=== PATIENT | male | born 1975 | race Caucasian/White ===

== ENCOUNTER 2017-09-03 06:38 | Emergency (ER) | payer OTHER ==
[~2017-09-03] VITALS: Ht 195.6 cm; Wt 136.1 kg
[~2017-09-03 06:38] MED LIST: ACET325; ALBU90I INH; ALBU90OI INH; AMIT50 PO; AMLO5 PO; Augmentin 875-1 EACH PO; Bactrim 400-801 EACH PO; CEPH500 PO; CYCL10 PO; DIPATR PO; DULO30 PO; ESCI10; GABA300 PO; HYDACE10B PO; HYDACE5 PO; IBUP800 PO; MONT10T PO; NAPR500 PO; NAPR550 PO; OXYACE5T PO; OXYACE7.5T PO; PRED10 PO; PROM25 PO; Percocet 5-3251 EACH PO; RXCYCL10 PO; RXDIPATR PO; RXHYD5325 PO; RXHYDACE PO; RXOXYACE PO; RXPROM25 PO; TOPI100 PO; TOPI50 PO; Ventolin/Prove6.7 GM INH
[2017-09-03] MEDS ORDERED: Bactrim Ds Tab1 EACH PO (09:41)
[2017-09-03] MEDS ORDERED: CEPH500 PO (09:41)
== END 2017-09-03 10:00 | disposition home or self-care (01) ==
LOC: ER 06:38
DX: L02.416 Cutaneous abscess of left lower limb (principal); Z79.899 Other long term (current) drug therapy; J45.909 Unspecified asthma, uncomplicated
CPT/HCPCS: 99283

== ENCOUNTER 2017-10-25 11:22 | Emergency (ER) | payer OTHER ==
[~2017-10-25] VITALS: Ht 195.6 cm; Wt 137.9 kg
[~2017-10-25 11:22] MED LIST changes: +Bactrim Ds Tab1 EACH PO
== END 2017-10-25 12:22 | disposition home or self-care (01) ==
LOC: ER 11:22
DX: R29.898 Other symptoms and signs involving the musculoskeletal system (principal); E66.01 Morbid (severe) obesity due to excess calories; J45.909 Unspecified asthma, uncomplicated; I10 Essential (primary) hypertension; Z79.899 Other long term (current) drug therapy; Z68.36 Body mass index [BMI] 36.0-36.9, adult
CPT/HCPCS: 29125; 99283

== ENCOUNTER 2017-10-29 12:42 | Emergency (ER) | payer OTHER ==
[~2017-10-29] VITALS: Ht 195.6 cm; Wt 137.9 kg
[2017-10-29] MEDS ORDERED: CEPH500 PO (13:24)
[2017-10-29] MEDS ORDERED: Mupirocin22 GM TOP (13:24)
== END 2017-10-29 13:33 | disposition home or self-care (01) ==
LOC: ER 12:42
DX: L98.9 Disorder of the skin and subcutaneous tissue, unspecified (principal); Z79.899 Other long term (current) drug therapy
CPT/HCPCS: 99283

== ENCOUNTER 2018-04-04 20:27 | Emergency (ER) | payer OTHER ==
[~2018-04-04] VITALS: Ht 182.9 cm; Wt 140.6 kg
[~2018-04-04 20:27] MED LIST changes: +Mupirocin22 GM TOP
[2018-04-04 20:56] LABS: BASOPHILS ABSOLUTE AUTO 0.03 K/mm3 (0.00-0.23); BASOPHILS PERCENT AUTO 0 % (0-2); EOSINOPHILS ABSOLUTE AUTO 0.13 K/mm3 (0.00-0.68); EOSINOPHILS PERCENT AUTO 1 % (0-6); Hematocrit 38.9 % (37.0-53.0); IMMATURE GRAN ABSOLUTE AUTO 0.08 K/mm3 (0.00-0.10); IMMATURE GRAN PERCENT AUTO 1 % (0-1); LYMPHOCYTES ABSOLUTE AUTO 3.21 K/mm3 (0.84-5.20); LYMPHOCYTES PERCENT AUTO 22 % (21-46); MONOCYTES ABSOLUTE AUTO 0.65 K/mm3 (0.16-1.47); MONOCYTES PERCENT AUTO 5 % (4-13); Mean Corpuscular HGB 31.6 pg (26.0-34.0); Mean Corpuscular HGB Conc 33.4 g/dL (31.5-36.5); Mean Corpuscular Volume 95 fL (80-100); Mean Platelet Volume 9.9 fL (9.1-12.4); NEUTROPHILS ABSOLUTE AUTO 10.26 K/mm3 (1.96-9.15); NEUTROPHILS PERCENT AUTO 71 % (41-73); Platelet Count 343 K/mm3 (150-400); RDW Coefficient Variation 13.3 % (11.7-14.2); RDW Standard Deviation 46.1 fL (35.1-46.3); Red Blood Cell Count 4.11 M/mm3 (4.30-5.90); White Blood Cell Count 14.36 K/mm3 (4.00-11.30)
[2018-04-04 21:14] LABS: Alanine Aminotransfer (ALT/SGP 19 U/L (12-78); Albumin/Globulin Ratio 0.9 (0.8-1.8); Alk Phos 108 U/L (50-136); Anion Gap 11 mmol/L (6-16); Aspartate Aminotrans (AST/SGOT 13 U/L (12-37); Bilirubin, Total 0.5 mg/dL (0.1-1.0); Blood Urea Nitrogen 16 mg/dL (8-24); Bun/Creatinine Ratio 15.2 (12.0-20.0); CO2, Blood 20 mmol/L (21-32); Calcium, Blood 8.8 mg/dL (8.5-10.1); Chloride, Blood 108 mmol/L (98-108); Creatinine, Blood 1.05 mg/dL (0.60-1.20); Globulin, Blood 4.4 g/dL (2.2-4.0); Glomerular Filtration Rate >60 (60-); Glucose, Blood 178 mg/dL (70-99); Potassium, Blood 3.4 mmol/L (3.5-5.5); Sodium, Blood 139 mmol/L (136-145); Total Protein, Blood 8.4 g/dL (6.4-8.2)
[2018-04-04] MEDS ORDERED: Motion Sickness25 M1 PO (21:46)
[2018-04-04 22:30] LABS: Source, Urine Clean Catch
[2018-04-04 22:32] LABS: Bilirubin, Urine Neg (Neg); Blood, Urine 1+ (Neg); Glucose Qualitative, Urine Neg (Neg); Ketones, Urine Neg (Neg); Nitrite, Urine Neg (Neg); Protein, Urine 3+ (Neg); Urobilinogen, Urine NORM (Normal)
[2018-04-04 22:37] LABS: Leukocyte Esterase, Urine Neg (Neg)
[2018-04-04 22:39] LABS: Appearance, Urine Hazy (Clear); Color, Urine Yellow (P-Yellow)
[2018-04-04 22:41] LABS: Mucus Light ([, 0-Heavy])
[2018-04-04 22:42] LABS: Bacteria Few /hpf; Squamous Epithelial Cells Not Seen /hpf (Few)
[2018-04-04 22:43] LABS: Hyaline Casts 0-2 /lpf (0-2)
[2018-04-04 22:45] LABS: U Amphetamine Screen Not Detected; U Barbituate Screen Not Detected; U Benzodiazapine Screen Not Detected; U Buprenorphine Screen Not Detected; U Cannabinoids Screen DETECTED; U Cocaine Screen Not Detected; U Methadone Screen Not Detected; U Methamphetamine Screen Not Detected; U Opiates Screen Not Detected; U Oxycodone Screen Not Detected; U Phencyclidine Screen Not Detected; U Propoxyphene Screen Not Detected
== END 2018-04-04 23:17 | disposition home or self-care (01) ==
LOC: ER 20:27
PROVIDERS: Emergency Medicine
DX: R42 Dizziness and giddiness (principal); E87.6 Hypokalemia; Z79.899 Other long term (current) drug therapy; I10 Essential (primary) hypertension; J45.909 Unspecified asthma, uncomplicated; F32.9 Major depressive disorder, single episode, unspecified
CPT/HCPCS: 36415; 71045; 80053; 81001; 85025; 87086; 93005; 93010; 96360; 99284-25; J7030

== ENCOUNTER 2018-09-06 12:18 | Emergency (ER) | payer SELFPAY ==
[~2018-09-06] VITALS: Ht 195.6 cm; Wt 140.6 kg
[~2018-09-06 12:18] MED LIST changes: +Motion Sickness25 M1 PO; +Zofran Odt4 MG PO
[2018-09-06 13:32] LABS: Influenza A Negative (NEGATIVE); Influenza B Negative (NEGATIVE)
[2018-09-06] MEDS ORDERED: ALBU90OI INH (14:01)
== END 2018-09-06 14:27 | disposition home or self-care (01) ==
LOC: ER 12:18
PROVIDERS: Physician Assistant
DX: J45.901 Unspecified asthma with (acute) exacerbation (principal); J06.9 Acute upper respiratory infection, unspecified; I10 Essential (primary) hypertension; F32.9 Major depressive disorder, single episode, unspecified; Z79.899 Other long term (current) drug therapy
CPT/HCPCS: 71046; 87804; 99283-25

== ENCOUNTER 2019-04-27 10:42 | Inpatient (IN) | payer OTHER ==
[~2019-04-27] VITALS: Ht 195.6 cm; Wt 165.7 kg
[2019-04-27 11:19] LABS: Source, Urine Voided
[2019-04-27 11:24] LABS: Appearance, Urine Clear (Clear); Bilirubin, Urine Neg (Neg); Blood, Urine Neg (Neg); Color, Urine Yellow (P-Yellow); Glucose Qualitative, Urine 2+ (Neg); Ketones, Urine 1+ (Neg); Leukocyte Esterase, Urine 1+ (Neg); Nitrite, Urine Neg (Neg); Protein, Urine 2+ (Neg); Urobilinogen, Urine 1+ (Normal)
[2019-04-27 11:46] LABS: Bacteria Few /hpf; Red Blood Cells, Urine 0-2 /hpf (0-2); Squamous Epithelial Cells Few /hpf (Few)
[2019-04-27 13:14] LABS: BASOPHILS ABSOLUTE AUTO 0.04 K/mm3 (0.00-0.23); BASOPHILS PERCENT AUTO 0 % (0-2); EOSINOPHILS ABSOLUTE AUTO 0.01 K/mm3 (0.00-0.68); EOSINOPHILS PERCENT AUTO 0 % (0-6); Hematocrit 38.4 % (37.0-53.0); Hemoglobin 13.2 g/dL (13.5-17.5); IMMATURE GRAN ABSOLUTE AUTO 0.19 K/mm3 (0.00-0.10); IMMATURE GRAN PERCENT AUTO 1 % (0-1); LYMPHOCYTES ABSOLUTE AUTO 1.15 K/mm3 (0.84-5.20); LYMPHOCYTES PERCENT AUTO 6 % (21-46); MONOCYTES ABSOLUTE AUTO 1.38 K/mm3 (0.16-1.47); MONOCYTES PERCENT AUTO 7 % (4-13); Mean Corpuscular HGB 32.4 pg (26.0-34.0); Mean Corpuscular HGB Conc 34.4 g/dL (31.5-36.5); Mean Corpuscular Volume 94 fL (80-100); Mean Platelet Volume 10.4 fL (9.1-12.4); NEUTROPHILS ABSOLUTE AUTO 17.34 K/mm3 (1.96-9.15); NEUTROPHILS PERCENT AUTO 86 % (41-73); Platelet Count 294 K/mm3 (150-400); RDW Coefficient Variation 12.7 % (11.7-14.2); RDW Standard Deviation 43.6 fL (35.1-46.3); Red Blood Cell Count 4.08 M/mm3 (4.30-5.90); White Blood Cell Count 20.11 K/mm3 (4.00-11.30)
[2019-04-27 13:24] LABS: Alanine Aminotransfer (ALT/SGP 26 U/L (12-78); Albumin, Blood 3.2 g/dL (3.4-5.0); Albumin/Globulin Ratio 0.8 (0.8-1.8); Alk Phos 100 U/L (50-136); Anion Gap 10 mmol/L (6-16); Aspartate Aminotrans (AST/SGOT 18 U/L (12-37); Bilirubin, Total 1.5 mg/dL (0.1-1.0); Blood Urea Nitrogen 14 mg/dL (8-24); Bun/Creatinine Ratio 14.7 (12.0-20.0); CO2, Blood 24 mmol/L (21-32); CPK Creatine Kinase 399 U/L (39-308); Calcium, Blood 8.7 mg/dL (8.5-10.1); Chloride, Blood 103 mmol/L (98-108); Creatine Kinase MB 1.5 ng/mL (0.0-3.6); Creatine Kinase MB Index 0.4 (0.0-4.0); Creatinine, Blood 0.95 mg/dL (0.60-1.20); Globulin, Blood 4.1 g/dL (2.2-4.0); Glomerular Filtration Rate >60 (60-); Glucose, Blood 239 mg/dL (70-99); Potassium, Blood 4.2 mmol/L (3.5-5.5); Sodium, Blood 137 mmol/L (136-145); Total Protein, Blood 7.3 g/dL (6.4-8.2)
--- NOTE | 2019-04-27 17:15 | NUR ---
INITIAL ASSESSMENT PATIENT ALERT AND ORIENTED X 4. PATIENT HAS TEMP OF 99.3 DEGREES FAHRENHEIT. PATIENT 1 PERSON ASSIST TRANSFER TO [facility] PER ER. PATIENT BROUGHT CANE THAT HE USES. PATIENT HOMELESS. PATIENT COMPLAINS OF PAIN IN BILAT FEET AND LEGS. PATIENT SATTING 90% AND GREATER ON RA. LUNGS CLEAR IN UPPER LOBES AND DIMINISHED IN LOWER LOBES. PATIENT HAS DRY COUGH. PATIENT IN ST, HR IN THE LOW 100S. SBP 140S TO 160S. ABDOMEN TENDER ON LEFT SIDE, HYPOACTIVE BS. PATIENT STATES LAST BM ON THE . PATIENT STATES HE WILL BE ABLE TO USE BEDSIDE URINAL. RECEIVED REPORT THAT WHEN PATIENT FOUND HE WAS FOUND INCONTINENT OF URINE AND STOOL. PATIENT BILAT THIGHS REDDENED, SCABBED, RASHY. BILAT FEET REDDENED, ESPECIALLY R 2ND TOE. THIGHS AND FEET OUTLINED IN SKIN MARKER. SCATTERED SCABS TO BACK AND TO LEFT HEEL. COCCYX REDDENED. SKIN FOLDS VERY MOIST AND SMELL YEASTY. CHA AREA EXCORIATED. NS INFUSING AT 150 MLS/ HOUR. PATIENT RECEIVED FLU SHOT. PATIENT ORIENTED TO UNIT, ROOM AND CALL SYSTEM. BED LOW, CALL LIGHT IN REACH. WILL CONTINUE TO MONITOR PATIENT FREQUENTLY THROUGHOUT SHIFT.
--- NOTE | 2019-04-27 19:20 | NUR ---
ASSUME CARE: REPORT RECIEVED FROM CHARLIE OFFGOING RN. MONITOR INTACT SHOWING SINUS RHYTHM/ SINUS TACH HEART RATE 90'S-100'S. DENIES CHEST PAIN CO LEG FEET DISCOMFORT HOWEVER "BETTER THAN IT WAS" LUNG SOUNDS CLEAR WITH DISTANT DECREASED SOUNDS IN THE BASES.RESPIRATIONS REGULAR AND EASY. SPO2 90-95%. ABDOMEN SOFT WITH BOWEL SOUNDS FOUR QUADS. DENIES NEED TO VOID. LOWER EXTREMITIES THIGHS AND FEET REDENED AND TENDER PUFFY SEE PHOTOS. CONTINUE TO MONITOR AND REPORT CHANGE IN PATIENT CONDITION.
--- NOTE | 2019-04-27 19:27 | NUR ---
SHIFT SUMMARY VITAL SIGNS HAVE REMAINED STABLE. PATIENT GIVEN PRN OXYCODONE TO HELP WITH FEET AND LEG PAIN. PATIENT HAS NO COMPLAINTS AT THIS TIME. NO OTHER ACUTE CHANGES TO NOTE ON SINCE ADMIT. REPORT GIVEN TO ASSUMING THREAD LASTER NURSE.
[2019-04-28 04:02] LABS: BASOPHILS ABSOLUTE AUTO 0.03 K/mm3 (0.00-0.23); BASOPHILS PERCENT AUTO 0 % (0-2); EOSINOPHILS ABSOLUTE AUTO 0.13 K/mm3 (0.00-0.68); EOSINOPHILS PERCENT AUTO 1 % (0-6); Hemoglobin 11.4 g/dL (13.5-17.5); IMMATURE GRAN ABSOLUTE AUTO 0.08 K/mm3 (0.00-0.10); IMMATURE GRAN PERCENT AUTO 1 % (0-1); LYMPHOCYTES ABSOLUTE AUTO 1.97 K/mm3 (0.84-5.20); LYMPHOCYTES PERCENT AUTO 18 % (21-46); MONOCYTES ABSOLUTE AUTO 0.81 K/mm3 (0.16-1.47); MONOCYTES PERCENT AUTO 7 % (4-13); Mean Corpuscular HGB 32.3 pg (26.0-34.0); Mean Corpuscular HGB Conc 33.5 g/dL (31.5-36.5); Mean Corpuscular Volume 96 fL (80-100); Mean Platelet Volume 10.4 fL (9.1-12.4); NEUTROPHILS ABSOLUTE AUTO 8.09 K/mm3 (1.96-9.15); NEUTROPHILS PERCENT AUTO 73 % (41-73); Platelet Count 255 K/mm3 (150-400); RDW Coefficient Variation 12.8 % (11.7-14.2); RDW Standard Deviation 45.4 fL (35.1-46.3); Red Blood Cell Count 3.53 M/mm3 (4.30-5.90); White Blood Cell Count 11.11 K/mm3 (4.00-11.30)
[2019-04-28 04:29] LABS: Anion Gap 8 mmol/L (6-16); Blood Urea Nitrogen 10 mg/dL (8-24); Bun/Creatinine Ratio 11.8 (12.0-20.0); CO2, Blood 24 mmol/L (21-32); Chloride, Blood 107 mmol/L (98-108); Creatinine, Blood 0.85 mg/dL (0.60-1.20); Glomerular Filtration Rate >60 (60-); Glucose, Blood 128 mg/dL (70-99); Potassium, Blood 3.1 mmol/L (3.5-5.5); Sodium, Blood 139 mmol/L (136-145)
--- NOTE | 2019-04-28 05:22 | NUR ---
SHIFT SUMMARY: RESTS QUIETLY WHEN UNDISTURBED COOPERATIVE TO CARES. MONITOR INTACT SHOWING SINUS TACH HEART RATE 100;S DENIES CHEST PAIN CONTINUES TO CO PAIN LEGS AND FEET. BOTH REMAIN RED. NO REDNESS NOTED OUTSIDE OF LAI. LUNG SOUNDS CLEAR UPPER LOBES DISTANT AND DECREASED IN THE BASES. VOIDS DARK YISEL URINE PER URINAL CONTINUE TO MONITOR AND REPORT CHANGE IN PATIENT CONDITION
--- NOTE | 2019-04-28 07:30 | NUR ---
ASSUMED CARE: PT RESTING IN BED AT THIS TIME. SINUS TACH AT THIS TIME. NO ACUTE NEEDS
--- NOTE | 2019-04-28 09:37 | NUR ---
CALL TO PATRICIA IN INFECTION CONTROL. DISCUSSED PT'S HISTORY OF BED BUGS. PATRICIA STATED THAT SINCE IT IS A HISTORY, TO HAVE MD EXAMINE PT TO DETERMINE IF ANY RECENT BITES ARE PRESENT. DISCUSSED WITH DR PEPPER WHO CAME IN TO SEE PT AND STATED ISOLATION CAN BE REMOVED BECAUSE NO BITES ARE PRESENT. DR PEPPER ALSO AWARE OF PT'S TACYCARDIA, PLAN TO INCREASE AMPLODIPINE DOSE. NO FURTHER NEEDS AT THIS TIME.
--- NOTE | 2019-04-28 12:22 | NUR ---
REPORT GIVEN TO VICKIE MARI. AWARE THAT PT HAS BEEN CLEARED FROM ISOLATION BY DR PEPPER. ESCORTED UP VIA BED BY RN. NO FURTHER NEEDS OR CONCERNS AT THIS TIME.
--- NOTE | 2019-04-28 18:26 | NUR ---
KANDI completed with Alex and is awaiting physician signature. He desires all medical interventions. He is estranged from his family and tells me there is no one to designate as MPOA. He is articulate and calm. He expressed frustration with his homelessness and blames family, missed opportunites, slow government response to SSD, and mistreatment at mission as causes. He is non-moravian, but appeared to enjoy being heard and understood. I will remain available.
--- NOTE | 2019-04-28 18:43 | NUR ---
SUMMARY PT TRANSFER TO [place] [id number] FROM ICU 12 TODAY. HE IS A/OX4, PLEASANT AFFECT. ABLE TO AMBULATE INTO BR IND HOWEVER STATE PAIN W AMBULATION/WT BRG D/T BLE CELLULITIS. SCHEDULED IV TORADOL GIVEN FOR RELIEF/CONTROL. REDNESS TO BILAT FEET IMPROVED/PT, HIS R 2ND TOE CONTINUES SWOLLEN/REDDISH. BILAT THIGHS HAVE AREAS OF REDNESS/EXCORIATION. NYSTATIN POWDER APPLIED TO GROIN REDNESS. VSS.
--- NOTE | 2019-04-29 04:42 | NUR ---
CUPBOARD BUILDER SUMMARY NO ACUTE CHANGES THIS SHIFT. PT AAOX4 AND PLEASANT. REDNESS AND SWELLING STILL PRESENT ON BILATERAL FEET/THIGHS. REDNESS IMPROVED FROM ORIGINAL MARKED AREA. STARTED FIRST APPLICATION OF KENALOG OINTMENT TONIGHT ON THIGHS. MEDICATING WITH SCHEDULED TORADOL IV Q6H. PT REQUIRED OXYCODONE FOR BREAKTHROUGH PAIN X1 TONIGHT BETWEEN DOSES OF TORADOL. VSS, WILL CONTINUE TO MONITOR.
[2019-04-29 05:04] LABS: BASOPHILS ABSOLUTE AUTO 0.04 K/mm3 (0.00-0.23); BASOPHILS PERCENT AUTO 1 % (0-2); EOSINOPHILS ABSOLUTE AUTO 0.27 K/mm3 (0.00-0.68); EOSINOPHILS PERCENT AUTO 3 % (0-6); Hematocrit 36.7 % (37.0-53.0); IMMATURE GRAN PERCENT AUTO 1 % (0-1); LYMPHOCYTES ABSOLUTE AUTO 2.08 K/mm3 (0.84-5.20); LYMPHOCYTES PERCENT AUTO 24 % (21-46); MONOCYTES ABSOLUTE AUTO 0.57 K/mm3 (0.16-1.47); MONOCYTES PERCENT AUTO 7 % (4-13); Mean Corpuscular HGB 31.4 pg (26.0-34.0); Mean Corpuscular HGB Conc 32.7 g/dL (31.5-36.5); Mean Corpuscular Volume 96 fL (80-100); Mean Platelet Volume 10.4 fL (9.1-12.4); NEUTROPHILS ABSOLUTE AUTO 5.76 K/mm3 (1.96-9.15); NEUTROPHILS PERCENT AUTO 65 % (41-73); Platelet Count 276 K/mm3 (150-400); RDW Standard Deviation 46.1 fL (35.1-46.3); Red Blood Cell Count 3.82 M/mm3 (4.30-5.90); White Blood Cell Count 8.82 K/mm3 (4.00-11.30)
[2019-04-29 05:24] LABS: Percent Saturation 30.4 % (20.0-50.0)
[2019-04-29 05:30] LABS: Alanine Aminotransfer (ALT/SGP 33 U/L (12-78); Albumin, Blood 2.8 g/dL (3.4-5.0); Albumin/Globulin Ratio 0.7 (0.8-1.8); Alk Phos 90 U/L (50-136); Anion Gap 6 mmol/L (6-16); Aspartate Aminotrans (AST/SGOT 27 U/L (12-37); Bilirubin, Total 0.8 mg/dL (0.1-1.0); Blood Urea Nitrogen 14 mg/dL (8-24); CO2, Blood 25 mmol/L (21-32); Calcium, Blood 8.8 mg/dL (8.5-10.1); Chloride, Blood 106 mmol/L (98-108); Globulin, Blood 4.2 g/dL (2.2-4.0); Glomerular Filtration Rate >60 (60-); Glucose, Blood 128 mg/dL (70-99); Magnesium, Blood 2.2 mg/dL (1.6-2.4); Potassium, Blood 3.5 mmol/L (3.5-5.5); Sodium, Blood 137 mmol/L (136-145)
--- NOTE | 2019-04-29 14:41 | NUR ---
SUMMARY PT HAS BEEN IN BED MOST OF DAY, GETS UP TO GO TO BR NEEDED. STATES CONTINUING BLE DISCOMFORT/PAIN D/T EXCORIATION/CELLULITIS BILAT THIGHS & FEET. THIGHS CONTINUE RED, EXCORIATED, MEDICATED CREAM APPLIED/ORDER. FEET SWOLLEN, WARM, REDNESS HAS DECREASED. HAVE GIVEN IV TORADOL & OXYCODONE FOR PAIN CONTROL/RELIEF. PT HAS SLEPT MUCH OF AFTERNOON. VSS, AFEBRILE. IV ANTIBX CONTINUE.
[2019-04-30 05:00] LABS: BASOPHILS ABSOLUTE AUTO 0.03 K/mm3 (0.00-0.23); BASOPHILS PERCENT AUTO 0 % (0-2); EOSINOPHILS ABSOLUTE AUTO 0.23 K/mm3 (0.00-0.68); EOSINOPHILS PERCENT AUTO 3 % (0-6); Hematocrit 34.8 % (37.0-53.0); Hemoglobin 11.7 g/dL (13.5-17.5); IMMATURE GRAN ABSOLUTE AUTO 0.07 K/mm3 (0.00-0.10); IMMATURE GRAN PERCENT AUTO 1 % (0-1); LYMPHOCYTES ABSOLUTE AUTO 2.07 K/mm3 (0.84-5.20); LYMPHOCYTES PERCENT AUTO 24 % (21-46); MONOCYTES ABSOLUTE AUTO 0.49 K/mm3 (0.16-1.47); MONOCYTES PERCENT AUTO 6 % (4-13); Mean Corpuscular HGB Conc 33.6 g/dL (31.5-36.5); Mean Corpuscular Volume 95 fL (80-100); Mean Platelet Volume 10.4 fL (9.1-12.4); NEUTROPHILS ABSOLUTE AUTO 5.66 K/mm3 (1.96-9.15); NEUTROPHILS PERCENT AUTO 66 % (41-73); Platelet Count 313 K/mm3 (150-400); RDW Coefficient Variation 12.5 % (11.7-14.2); RDW Standard Deviation 43.9 fL (35.1-46.3); Red Blood Cell Count 3.66 M/mm3 (4.30-5.90); White Blood Cell Count 8.55 K/mm3 (4.00-11.30)
--- NOTE | 2019-04-30 05:12 | NUR ---
PEST CONTROL PILOT SUMMARY NO ACUTE CHANGES THIS SHIFT. PT AAOX4 AND INDEPENDENT, HOWEVER PT MAINLY USES URINAL IN BED WALKING IS PAINFUL DUE TO CELLULITIS ON BILATERAL THIGHS. REDNESS AND SWELLING OF BLE'S LOOK SLIGHTLY IMPROVED. PT STILL REQUIRING PRN OXYCODONE 10 MG EVERY 5-6 HOURS. TELE HAS BEEN STABLE WITH HR IN 90'S MOSTLY AND OCCASIONALLY TOUGHING INTO LOW 100'S. NO OTHER CONCERNS FROM PT. VSS, WILLC CONTINUE TO MONITOR.
[2019-04-30 05:20] LABS: Alanine Aminotransfer (ALT/SGP 32 U/L (12-78); Albumin, Blood 2.6 g/dL (3.4-5.0); Albumin/Globulin Ratio 0.7 (0.8-1.8); Alk Phos 83 U/L (50-136); Anion Gap 7 mmol/L (6-16); Aspartate Aminotrans (AST/SGOT 22 U/L (12-37); Bilirubin, Total 0.4 mg/dL (0.1-1.0); Blood Urea Nitrogen 15 mg/dL (8-24); Bun/Creatinine Ratio 14.9 (12.0-20.0); CO2, Blood 26 mmol/L (21-32); Calcium, Blood 8.6 mg/dL (8.5-10.1); Chloride, Blood 105 mmol/L (98-108); Creatinine, Blood 1.01 mg/dL (0.60-1.20); Globulin, Blood 3.6 g/dL (2.2-4.0); Glomerular Filtration Rate >60 (60-); Glucose, Blood 133 mg/dL (70-99); Potassium, Blood 3.7 mmol/L (3.5-5.5); Sodium, Blood 138 mmol/L (136-145); Total Protein, Blood 6.2 g/dL (6.4-8.2)
--- NOTE | 2019-04-30 07:37 | NUR ---
ASSUMED CARE OF PT- EDSIDE REPORT COMPLETED WITH ALIE CASILLAS. PER REPORT PT ADMITTED FOR BILATERAL FEET CELLULITIS, EXTENDING UP TO THE GRION. PT HAS CHAFFING IN THE GROIN POWDERS AND CREAMS ORDERED FOR THIS WHICH PT APPLYS INDEPENDENTLY. PT IS ALERT, ORIENTED AND INDEPENDENT IN THE ROOM. PER REPORT PT IS HOMELESS, EFFORTS ARE BEING MADE TO IMPROVE DISCHARGE SAFETY. PT CELLULITIS IS IMPROVING PER REPORT FROM ALIE CASILLAS, REDNESS HAS RECEDED FROM THE ORRIGIONAL OUTLINE OF THE AFFECTED AREA.
--- NOTE | 2019-04-30 18:07 | NUR ---
SHIFT SUMMARY- PT ALERT, ORIENTED AND INDEPENDENT IN THE ROOM. PT HAS RECIEVED PAIUN MEDICATION TWICE AND ORDERED SCHEDULED TORADOL IV Q6. PT PAIN SEEMED TO BE MANAGED BETTER THIS EVENING WITH THE INCLUSION OF THE TORADOL. PT DISCHARGE PLAN BEING MANAGED BY FRAUD REPRESENTATIVE. THEY ARE TRYING TO ARRANGE SAFE DISCHARGE PLANNS ONCE THE PT IS MEDICALLY STABLE.
--- NOTE | 2019-05-01 04:18 | NUR ---
43 year old Male admitted with severe sepsis related to cellulitis improving. PT has strong yeasty odor and set up for shower in AM. Cellulitis has been outlined and receeding. Acute pain improved with toradol 30 mg IV Q 6 hours and PRN oxycodone 5 to 10 mg PRN. Elevated LE to decrease edema. Discharge planning for homeless PT continues.
--- NOTE | 2019-05-01 19:48 | NUR ---
SHIFT SUMMARY- PT ALERT, ORIENTED AND INDEPENDENT IN THE RROM. PT TOOK A SHOWER TODAY, NEW ORDER FOR COMPRESSION STOCKINGS. EDEMA SEEMED TO IMPROVE WITH THEM ON, ADDITIONAL PILLOWS PLACED UNDER FEET TO ELEVATE THE EXTREMITY. PT HAS HAD NO ACUTE CHANGE T/O THE SHIFT, LAST PAIN MED AT 1800.
--- NOTE | 2019-05-02 06:19 | NUR ---
pt continues to have pain in bilat lower extremities with edema deep present. some decreased edema with elevation. Medicated for pain several times roxycodone 10 mg po and toradol 30 mg iv x 1 . Decreased redness and warmth. Continues to have improvements in rash and scabbed areas bilat thighs. continues homeless, says he has no where to stay on discharge.
[2019-05-02] MEDS ORDERED: ACET325 PO (11:00)
[2019-05-02] MEDS ORDERED: ALBU90OI INH (11:02)
[2019-05-02] MEDS ORDERED: AMLO10 PO (11:03)
[2019-05-02] MEDS ORDERED: AMIT50 PO (11:03)
[2019-05-02] MEDS ORDERED: MONT10T PO (11:04)
[2019-05-02] MEDS ORDERED: Pedi-Dri 100,0060 GM TOP (11:05)
[2019-05-02] MEDS ORDERED: ONDA4ODT MM (11:05)
[2019-05-02] MEDS ORDERED: TOPI25 PO (11:06)
[2019-05-02] MEDS ORDERED: ROXICODONE5 MG PO (11:06)
[2019-05-02] MEDS ORDERED: TRIA15CR3 TOP (11:07)
[2019-05-02] MEDS ORDERED: IBUP600 PO (11:09)
--- NOTE | 2019-05-02 13:22 | NUR ---
DISCHARGE NOTE- PT WAS DISCHARGED HOME WITH HOME HEALTH. PAIN SEEMED WELL MANAGED AT THE TIME OF DISCHARGE. IV WAS DC'D PRIOR TO DISCHARGE. PT WAS TAKEN OUT VIA W/C BY THE FRIEND THAT HE WILL BE LIVING WITH. PT MEDS WERE FAXED TO [facility] IN [place] PER HIS REQUEST. PT WAS GIVEN HARD COPY SCRIPT FOR OXY COPY OF THE SCRIPT IN THE HARD CHART.
== END 2019-05-02 11:42 | disposition home health service (06) | DRG 872 ==
LOC: ER 10:42 → ICUW 15:07 → MEDS 04-28 12:37
PROVIDERS: Emergency Medicine; Nurse Practitioner Acute Care; ADMIT Internal Medicine
DX: A41.9 Sepsis, unspecified organism (principal); L03.116 Cellulitis of left lower limb; L03.115 Cellulitis of right lower limb; R65.20 Severe sepsis without septic shock; D64.9 Anemia, unspecified; G60.9 Hereditary and idiopathic neuropathy, unspecified; E66.01 Morbid (severe) obesity due to excess calories; I87.8 Other specified disorders of veins; Z59.0 Homelessness; Z68.36 Body mass index [BMI] 36.0-36.9, adult; J45.909 Unspecified asthma, uncomplicated
CPT/HCPCS: 36415; 71045; 73620; 80048; 80053; 81001; 82550; 82553; 82607; 82728; 82746; 83036; 83540; 83550; 83605; 83735; 84443; 85025; 85651; 86140; 87040; 87086; 90686; 96361; 96365; 96367; 99285-25; G0008; J0690; J0696; J1650; J1885; J3370; J3480; J7030; J7050

== ENCOUNTER 2019-08-03 21:28 | Emergency (ER) | payer OTHER ==
[~2019-08-03] VITALS: Ht 195.6 cm; Wt 147.4 kg
[~2019-08-03 21:28] MED LIST changes: +ACET325 PO; +AMLO10 PO; +IBUP600 PO; +ONDA4ODT MM; +Pedi-Dri 100,0060 GM TOP; +ROXICODONE5 MG PO; +TOPI25 PO; +TRIA15CR3 TOP
== END 2019-08-04 03:03 | disposition home or self-care (01) ==
LOC: ER 21:28
DX: M54.6 Pain in thoracic spine (principal); M25.551 Pain in right hip; J45.909 Unspecified asthma, uncomplicated; F32.9 Major depressive disorder, single episode, unspecified; I10 Essential (primary) hypertension; Z79.899 Other long term (current) drug therapy
CPT/HCPCS: 72070; 73502; 96374; 99283-25; J1885

== ENCOUNTER 2019-09-04 20:22 | Observation (INO) | payer OTHER ==
[~2019-09-04] VITALS: Ht 195.6 cm; Wt 147.4 kg
[2019-09-04 21:10] LABS: BASOPHILS ABSOLUTE AUTO 0.03 K/mm3 (0.00-0.23); BASOPHILS PERCENT AUTO 0 % (0-2); EOSINOPHILS ABSOLUTE AUTO 0.14 K/mm3 (0.00-0.68); EOSINOPHILS PERCENT AUTO 2 % (0-6); Hematocrit 40.6 % (37.0-53.0); Hemoglobin 13.9 g/dL (13.5-17.5); IMMATURE GRAN ABSOLUTE AUTO 0.02 K/mm3 (0.00-0.10); IMMATURE GRAN PERCENT AUTO 0 % (0-1); LYMPHOCYTES ABSOLUTE AUTO 2.26 K/mm3 (0.84-5.20); LYMPHOCYTES PERCENT AUTO 31 % (21-46); MONOCYTES PERCENT AUTO 7 % (4-13); Mean Corpuscular HGB 31.2 pg (26.0-34.0); Mean Corpuscular HGB Conc 34.2 g/dL (31.5-36.5); Mean Corpuscular Volume 91 fL (80-100); Mean Platelet Volume 10.9 fL (9.1-12.4); NEUTROPHILS ABSOLUTE AUTO 4.34 K/mm3 (1.96-9.15); NEUTROPHILS PERCENT AUTO 60 % (41-73); Platelet Count 377 K/mm3 (150-400); RDW Coefficient Variation 12.7 % (11.7-14.2); RDW Standard Deviation 41.6 fL (35.1-46.3); Red Blood Cell Count 4.46 M/mm3 (4.30-5.90); White Blood Cell Count 7.29 K/mm3 (4.00-11.30)
[2019-09-04 21:24] LABS: Alanine Aminotransfer (ALT/SGP 38 U/L (12-78); Albumin, Blood 3.4 g/dL (3.4-5.0); Albumin/Globulin Ratio 0.7 (0.8-1.8); Alk Phos 94 U/L (50-136); Anion Gap 9 mmol/L (6-16); Aspartate Aminotrans (AST/SGOT 24 U/L (12-37); Bilirubin, Total 0.9 mg/dL (0.1-1.0); Blood Urea Nitrogen 11 mg/dL (8-24); Bun/Creatinine Ratio 12.3 (12.0-20.0); CO2, Blood 25 mmol/L (21-32); Calcium, Blood 9.4 mg/dL (8.5-10.1); Chloride, Blood 102 mmol/L (98-108); Creatinine, Blood 0.89 mg/dL (0.60-1.20); Globulin, Blood 4.6 g/dL (2.2-4.0); Glomerular Filtration Rate >60 (60-); Glucose, Blood 165 mg/dL (70-99); Potassium, Blood 2.9 mmol/L (3.5-5.5); Sodium, Blood 136 mmol/L (136-145)
[2019-09-04 23:51] LABS: U Amphetamine Screen Not Detected; U Barbituate Screen Not Detected; U Benzodiazapine Screen Not Detected; U Buprenorphine Screen Not Detected; U Cannabinoids Screen DETECTED; U Cocaine Screen Not Detected; U Methadone Screen Not Detected; U Methamphetamine Screen Not Detected; U Opiates Screen Not Detected; U Oxycodone Screen Not Detected; U Phencyclidine Screen Not Detected; U Propoxyphene Screen Not Detected
[2019-09-05 01:27] LABS: Adenovirus F 40/41 Not Detected (NOT DETECT); Astrovirus Not Detected (NOT DETECT); Campylobacter Sp Not Detected (NOT DETECT); Cryptosporidium Not Detected (NOT DETECT); Cyclospora Cayetanensis Not Detected (NOT DETECT); E. Coli O157 Not Detected (NOT DETECT); Entamoeba Histolytica Not Detected (NOT DETECT); Enteroaggregative E. coli-EAEC Not Detected (NOT DETECT); Enteropathogenic E. coli-EPEC Not Detected (NOT DETECT); Enterotoxigenic E. coli-ETEC Not Detected (NOT DETECT); Giardia Lamblia Not Detected (NOT DETECT); Norovirus GI/GII Not Detected (NOT DETECT); Plesiomonas Shigelloides Not Detected (NOT DETECT); Rotavirus A Not Detected (NOT DETECT); Salmonella Sp Not Detected (NOT DETECT); Sapovirus Not Detected (NOT DETECT); Shiga Toxin-prod E. coli-STEC Not Detected (NOT DETECT); Shigella/Enteroin E. coli-EIEC Not Detected (NOT DETECT); Vibrio Cholerae Not Detected (NOT DETECT); Vibrio Sp Not Detected (NOT DETECT); Yersinia Enterocolitica Not Detected (NOT DETECT)
[2019-09-05] MEDS ORDERED: FLUO10 PO (02:46)
[2019-09-05 03:17] LABS: Adenovirus Not Detected (NOT DETECT); Coronavirus 229E Not Detected (NOT DETECT); Coronavirus HKU1 Not Detected (NOT DETECT); Coronavirus NL63 Not Detected (NOT DETECT); Coronavirus OC43 Not Detected (NOT DETECT)
[2019-09-05 03:18] LABS: Bordetella pertussis Not Detected (NOT DETECT); Chlamydophila pneumoniae Not Detected (NOT DETECT); Human Metapneumovirus Not Detected (NOT DETECT); Human Rhinovirus/Enterovirus Not Detected (NOT DETECT); Influenza A/2009-H1 Not Detected (NOT DETECT); Influenza A/H1 Not Detected (NOT DETECT); Influenza A/H3 Not Detected (NOT DETECT); Influenza B Not Detected (NOT DETECT); Mycoplasma pneumoniae Not Detected (NOT DETECT); Parainfluenza Virus 1 Not Detected (NOT DETECT); Parainfluenza Virus 2 Not Detected (NOT DETECT); Parainfluenza Virus 3 Not Detected (NOT DETECT); Parainfluenza Virus 4 Not Detected (NOT DETECT); Respiratory Syncytial Virus Not Detected (NOT DETECT)
== END 2019-09-05 04:07 | disposition home or self-care (01) ==
LOC: ER 20:22 → EOR 20:23
PROVIDERS: ADMIT Emergency Medicine
DX: K52.9 Noninfective gastroenteritis and colitis, unspecified (principal); E87.6 Hypokalemia; E86.0 Dehydration; T45.0X5A Adverse effect of antiallergic and antiemetic drugs, initial encounter; F32.9 Major depressive disorder, single episode, unspecified; Z59.0 Homelessness; J45.20 Mild intermittent asthma, uncomplicated; J06.9 Acute upper respiratory infection, unspecified; Z79.899 Other long term (current) drug therapy
CPT/HCPCS: 0097U; 0099U; 36415; 71045; 80053; 83690; 85025; 96361; 96374; 96375; 99285-25; G0378; J1200; J2405; J7030; Q3014

== ENCOUNTER 2021-01-28 17:59 | Emergency (ER) | payer OTHER ==
[~2021-01-28] VITALS: Ht 195.6 cm; Wt 145.2 kg
[~2021-01-28 17:59] MED LIST changes: +FLUO10 PO
== END 2021-01-28 23:37 | disposition home or self-care (01) ==
LOC: ER 17:59
DX: M79.662 Pain in left lower leg (principal); E66.01 Morbid (severe) obesity due to excess calories; R20.0 Anesthesia of skin; G89.29 Other chronic pain; M54.9 Dorsalgia, unspecified; J45.909 Unspecified asthma, uncomplicated; I10 Essential (primary) hypertension; Z68.37 Body mass index [BMI] 37.0-37.9, adult
CPT/HCPCS: 93971; 99283-25

== ENCOUNTER → 2021-02-20 | Outpatient (CLI) | payer OTHER ==
[2021-02-20 19:30] LABS: BASOPHILS ABSOLUTE AUTO 0.03 K/mm3 (0.00-0.23); BASOPHILS PERCENT AUTO 0 % (0-2); EOSINOPHILS ABSOLUTE AUTO 0.12 K/mm3 (0.00-0.68); EOSINOPHILS PERCENT AUTO 2 % (0-6); Hematocrit 41.2 % (37.0-53.0); IMMATURE GRAN ABSOLUTE AUTO 0.02 K/mm3 (0.00-0.10); IMMATURE GRAN PERCENT AUTO 0 % (0-1); LYMPHOCYTES PERCENT AUTO 22 % (21-46); MONOCYTES ABSOLUTE AUTO 0.38 K/mm3 (0.16-1.47); MONOCYTES PERCENT AUTO 5 % (4-13); Mean Corpuscular HGB 32.6 pg (26.0-34.0); Mean Corpuscular Volume 96 fL (80-100); NEUTROPHILS ABSOLUTE AUTO 5.11 K/mm3 (1.96-9.15); NEUTROPHILS PERCENT AUTO 70 % (41-73); Platelet Count 295 K/mm3 (150-400); RDW Coefficient Variation 14.2 % (11.7-14.2); RDW Standard Deviation 49.9 fL (35.1-46.3); Red Blood Cell Count 4.29 M/mm3 (4.30-5.90); White Blood Cell Count 7.26 K/mm3 (4.00-11.30)
[2021-02-20 19:35] LABS: Alanine Aminotransfer (ALT/SGP 78 U/L (12-78); Albumin, Blood 3.2 g/dL (3.4-5.0); Albumin/Globulin Ratio 0.8 (0.8-1.8); Alk Phos 111 U/L (50-136); Anion Gap 6 mmol/L (6-16); Aspartate Aminotrans (AST/SGOT 66 U/L (12-37); Bilirubin, Total 1.1 mg/dL (0.1-1.0); Blood Urea Nitrogen 9 mg/dL (8-24); Bun/Creatinine Ratio 11.5 (12.0-20.0); CHOL/HDL RATIO 4.8; CO2, Blood 28 mmol/L (21-32); Chloride, Blood 104 mmol/L (98-108); Cholesterol 197 mg/dL (50-200); Creatinine, Blood 0.78 mg/dL (0.60-1.20); Globulin, Blood 3.9 g/dL (2.2-4.0); Glomerular Filtration Rate >60 (60-); Glucose, Blood 215 mg/dL (70-99); HDL Cholesterol 41 mg/dL (>39); LDL/HDL RATIO 2.6; Low Density Lipoprotein Chol 108 mg/dL (0-110); Potassium, Blood 4.5 mmol/L (3.5-5.5); Sodium, Blood 138 mmol/L (136-145); Total Protein, Blood 7.1 g/dL (6.4-8.2); Triglycerides 240 mg/dL (30-160); Very Low Density Lipoprot Chol 48 mg/dL (6-32)
== END | disposition home or self-care (01) ==
LOC: LAB SHORT 17:52 → LAB 17:52
PROVIDERS: Student in an Organized Health Care Education/Training Program
DX: E66.9 Obesity, unspecified (principal)
CPT/HCPCS: 80053; 80061; 83036; 84443; 85025

== ENCOUNTER 2021-03-29 00:18 | Emergency (ER) | payer OTHER ==
[~2021-03-29] VITALS: Ht 182.9 cm; Wt 113.4 kg
== END 2021-03-29 03:54 | disposition home or self-care (01) ==
LOC: ER 00:18
DX: U07.1 COVID-19 (principal); I10 Essential (primary) hypertension; J45.20 Mild intermittent asthma, uncomplicated
CPT/HCPCS: 96374; 96375; 99284; J1885; J2405

== ENCOUNTER 2021-04-02 16:33 | Emergency (ER) | payer OTHER ==
[~2021-04-02] VITALS: Ht 195.6 cm; Wt 156.5 kg
[2021-04-02] MEDS ORDERED: ESCI10 PO (16:49)
[2021-04-02] MEDS ORDERED: Prinivil10 MG PO (16:49)
[2021-04-02 19:30] LABS: BASOPHILS ABSOLUTE AUTO 0.03 K/mm3 (0.00-0.23); BASOPHILS PERCENT AUTO 0 % (0-2); EOSINOPHILS ABSOLUTE AUTO 0.13 K/mm3 (0.00-0.68); EOSINOPHILS PERCENT AUTO 2 % (0-6); Hematocrit 36.7 % (37.0-53.0); Hemoglobin 12.6 g/dL (13.5-17.5); IMMATURE GRAN PERCENT AUTO 1 % (0-1); LYMPHOCYTES ABSOLUTE AUTO 1.26 K/mm3 (0.84-5.20); LYMPHOCYTES PERCENT AUTO 15 % (21-46); MONOCYTES ABSOLUTE AUTO 0.55 K/mm3 (0.16-1.47); MONOCYTES PERCENT AUTO 7 % (4-13); Mean Corpuscular HGB 31.6 pg (26.0-34.0); Mean Corpuscular HGB Conc 34.3 g/dL (31.5-36.5); Mean Corpuscular Volume 92 fL (80-100); Mean Platelet Volume 10.5 fL (9.1-12.4); NEUTROPHILS ABSOLUTE AUTO 6.27 K/mm3 (1.96-9.15); NEUTROPHILS PERCENT AUTO 75 % (41-73); Platelet Count 528 K/mm3 (150-400); RDW Coefficient Variation 13.2 % (11.7-14.2); RDW Standard Deviation 43.9 fL (35.1-46.3); Red Blood Cell Count 3.99 M/mm3 (4.30-5.90); White Blood Cell Count 8.34 K/mm3 (4.00-11.30)
[2021-04-02 19:51] LABS: Alanine Aminotransfer (ALT/SGP 50 U/L (12-78); Albumin, Blood 2.4 g/dL (3.4-5.0); Albumin/Globulin Ratio 0.4 (0.8-1.8); Alk Phos 91 U/L (50-136); Anion Gap 4 mmol/L (6-16); Aspartate Aminotrans (AST/SGOT 38 U/L (12-37); Bilirubin, Total 0.7 mg/dL (0.1-1.0); Blood Urea Nitrogen 12 mg/dL (8-24); Bun/Creatinine Ratio 17.6 (12.0-20.0); CO2, Blood 29 mmol/L (21-32); Calcium, Blood 9.3 mg/dL (8.5-10.1); Chloride, Blood 101 mmol/L (98-108); Creatinine, Blood 0.68 mg/dL (0.60-1.20); Globulin, Blood 5.6 g/dL (2.2-4.0); Glomerular Filtration Rate >60 (60-); Glucose, Blood 379 mg/dL (70-99); Potassium, Blood 3.8 mmol/L (3.5-5.5); Sodium, Blood 134 mmol/L (136-145); Troponin I <0.015 ng/mL (0.000-0.040)
[2021-04-02] MEDS ORDERED: DOXY100 PO (20:04)
== END 2021-04-02 21:12 | disposition home or self-care (01) ==
LOC: ER 16:33
PROVIDERS: Emergency Medicine
DX: J18.9 Pneumonia, unspecified organism (principal); I10 Essential (primary) hypertension; G62.9 Polyneuropathy, unspecified; J45.909 Unspecified asthma, uncomplicated; Z79.899 Other long term (current) drug therapy
CPT/HCPCS: 36415; 71045; 80053; 84484; 85025; 93005; 93010; 99285-25; A9270

== ENCOUNTER 2023-06-08 13:20 | Emergency (ER) | payer OTHER ==
[~2023-06-08] VITALS: Ht 195.6 cm; Wt 154.2 kg
[~2023-06-08 13:20] MED LIST changes: +DOXY100 PO; +ESCI10 PO; +Prinivil10 MG PO
[2023-06-08 13:27] VITALS: BP 175/104
[2023-06-08] MEDS ORDERED: Bactrim Ds Tab1 EACH PO (14:53)
[2023-06-08] MEDS ORDERED: CEPH500 PO (14:53)
== END 2023-06-08 15:27 | disposition home or self-care (01) ==
LOC: ER 13:20
DX: L02.414 Cutaneous abscess of left upper limb (principal); I10 Essential (primary) hypertension; J45.20 Mild intermittent asthma, uncomplicated; Z88.8 Allergy status to other drugs, medicaments and biological substances; Z79.899 Other long term (current) drug therapy
CPT/HCPCS: 99284; A9270

== ENCOUNTER 2023-09-21 08:05 | Emergency (ER) | payer OTHER ==
[~2023-09-21] VITALS: Ht 195.6 cm; Wt 136.1 kg
[2023-09-21 08:34] LABS: BASOPHILS ABSOLUTE AUTO 0.03 K/mm3 (0.00-0.23); BASOPHILS PERCENT AUTO 0 % (0-2); EOSINOPHILS ABSOLUTE AUTO 0.13 K/mm3 (0.00-0.68); EOSINOPHILS PERCENT AUTO 1 % (0-6); Hemoglobin 15.4 g/dL (13.5-17.5); IMMATURE GRAN ABSOLUTE AUTO 0.07 K/mm3 (0.00-0.10); IMMATURE GRAN PERCENT AUTO 1 % (0-1); LYMPHOCYTES ABSOLUTE AUTO 1.77 K/mm3 (0.84-5.20); LYMPHOCYTES PERCENT AUTO 13 % (21-46); MONOCYTES ABSOLUTE AUTO 0.59 K/mm3 (0.16-1.47); MONOCYTES PERCENT AUTO 4 % (4-13); Mean Corpuscular HGB 32.2 pg (26.0-34.0); Mean Corpuscular HGB Conc 35.8 g/dL (31.5-36.5); Mean Corpuscular Volume 90 fL (80-100); Mean Platelet Volume 10.4 fL (9.1-12.4); NEUTROPHILS ABSOLUTE AUTO 10.72 K/mm3 (1.96-9.15); NEUTROPHILS PERCENT AUTO 81 % (41-73); Platelet Count 277 K/mm3 (150-400); RDW Coefficient Variation 12.8 % (11.7-14.2); RDW Standard Deviation 42.1 fL (35.1-46.3); Red Blood Cell Count 4.78 M/mm3 (4.30-5.90); White Blood Cell Count 13.31 K/mm3 (4.00-11.30)
[2023-09-21 09:00] LABS: Albumin, Blood 3.5 g/dL (3.4-5.0); Albumin/Globulin Ratio 0.9 (0.8-1.8); Bun/Creatinine Ratio 22.4 (12.0-20.0); Calcium, Blood 9.4 mg/dL (8.5-10.1); Creatinine, Blood 0.67 mg/dL (0.60-1.20); Potassium, Blood 4.3 mmol/L (3.5-5.5); Total Protein, Blood 7.5 g/dL (6.4-8.2)
[2023-09-21] MEDS ORDERED: NS 1,000 ML IV SCH (09:25)
[2023-09-21] MEDS ORDERED: Trimethoprim/Sulfamethoxazole DS Tab PO ONE (09:30)
[2023-09-21] MEDS ORDERED: Doxycycline Hyclate 100 MG TAB PO ONE (09:30)
[2023-09-21] MEDS ORDERED: DOXY100 PO (11:26)
[2023-09-21] MEDS ORDERED: BACTRIM DS TAB1 EAC1 PO (11:26)
[2023-09-21 11:31] VITALS: BP 158/98
== END 2023-09-21 11:36 | disposition home or self-care (01) ==
LOC: ER 08:05
PROVIDERS: Physician Assistant
DX: S50.861A Insect bite (nonvenomous) of right forearm, initial encounter (principal); S50.862A Insect bite (nonvenomous) of left forearm, initial encounter; L03.115 Cellulitis of right lower limb; L03.116 Cellulitis of left lower limb; D72.829 Elevated white blood cell count, unspecified; J45.20 Mild intermittent asthma, uncomplicated; G62.9 Polyneuropathy, unspecified; R73.9 Hyperglycemia, unspecified; M19.90 Unspecified osteoarthritis, unspecified site; I10 Essential (primary) hypertension; Z88.8 Allergy status to other drugs, medicaments and biological substances; W57.XXXA Bitten or stung by nonvenomous insect and other nonvenomous arthropods, initial encounter; Z59.00 Homelessness unspecified
CPT/HCPCS: 80053; 85025; 87070; 87075; 87077; 87147; 87186; 87205; 96360; 96361; 99283-25; A9270; J7030

== ENCOUNTER → 2024-08-18 | Outpatient (CLI) | payer OTHER ==
[~2024-08-18] MED LIST changes: +BACTRIM DS TAB1 EAC1 PO
[2024-08-18 16:55] LABS: Alanine Aminotransfer (ALT/SGP 30 U/L (12-78); Albumin, Blood 3.6 g/dL (3.4-5.0); Albumin/Globulin Ratio 0.9 (0.8-1.8); Alk Phos 104 U/L (50-136); Anion Gap 13 mmol/L (3-11); Aspartate Aminotrans (AST/SGOT 13 U/L (12-37); Bilirubin, Total 0.8 mg/dL (0.1-1.0); Blood Urea Nitrogen 13 mg/dL (8-24); Bun/Creatinine Ratio 18.7 (12.0-20.0); CHOL/HDL RATIO 5.8; CO2, Blood 25 mmol/L (21-32); Chloride, Blood 99 mmol/L (98-108); Cholesterol 243 mg/dL (50-200); Globulin, Blood 3.9 g/dL (2.2-4.0); Glomerular Filtration Rate 115 (60-); Glucose, Blood 335 mg/dL (70-99); HDL Cholesterol 42 mg/dL (>39); LDL/HDL RATIO 2.9; Low Density Lipoprotein Chol 124 mg/dL (0-110); Potassium, Blood 4.7 mmol/L (3.5-5.5); Sodium, Blood 132 mmol/L (136-145); Total Protein, Blood 7.5 g/dL (6.4-8.2); Triglycerides 386 mg/dL (30-160); Very Low Density Lipoprot Chol 77 mg/dL (6-32)
[2024-08-18 18:15] LABS: Creatinine, Urine Random 72.7 mg/dL (27.00-270.00); Microalbumin, Random Urine 11.8 mg/L (0.000-20.000)
== END ==
LOC: LAB 12:15 → LAB SHORT 12:15
PROVIDERS: Student in an Organized Health Care Education/Training Program
DX: E11.42 Type 2 diabetes mellitus with diabetic polyneuropathy (principal); E78.1 Pure hyperglyceridemia; I10 Essential (primary) hypertension
CPT/HCPCS: 80053; 80061; 82043; 82570

== ENCOUNTER → 2024-09-09 | Outpatient (CLI) | payer OTHER ==
[2024-09-11 11:35] LABS: HEPATITIS BE ANTIGEN Negative (Negative)
[2024-09-11 17:23] LABS: HEPATITIS C AB CIA INTERP Negative (Negative); HEPATITIS C ANTIBODY CIA INDEX 0.06 IV
[2024-09-12 08:29] LABS: HIV 1,2 COMBO ANTIGEN/ANTIBODY Negative (Negative)
[2024-09-12 09:59] LABS: MUMPS VIRUS ANTIBODY,IGG 84.1 AU/mL
[2024-09-12 10:07] LABS: MEASLES,RUBEOLA,ANTIBODY IGG >300.0 AU/mL
[2024-09-12 10:16] LABS: VARICELLA-ZOSTER VIRUS AB,IGG 13.5 S/CO; VARICELLA-ZOSTER VIRUS AB,IGM 0.15 ISR (<=0.90)
== END ==
LOC: LAB 14:40 → LAB SHORT 14:40
PROVIDERS: Student in an Organized Health Care Education/Training Program
DX: Z11.4 Encounter for screening for human immunodeficiency virus [HIV] (principal); Z11.59 Encounter for screening for other viral diseases; E53.8 Deficiency of other specified B group vitamins; Z28.39 Other underimmunization status
CPT/HCPCS: 82607; 86658; 86735; 86762; 86765; 86787; 86803; 87350; 87389

== ENCOUNTER → 2024-10-08 | Outpatient (CLI) | payer OTHER | LOC: LAB SHORT 09:56 → LAB 09:56 | DX: J06.9 Acute upper respiratory infection, unspecified (principal) ==

== ENCOUNTER → 2024-11-25 | Outpatient (CLI) | payer OTHER ==
[~2024-11-25] MED LIST changes: +LOPE2C PO
== END ==
LOC: LAB 17:49 → LAB SHORT 17:49
DX: L30.9 Dermatitis, unspecified (principal)
CPT/HCPCS: 87102; 87220

== ENCOUNTER → 2025-01-18 | Outpatient (CLI) | payer OTHER | LOC: LAB SHORT 12:03 → LAB 12:03 | DX: B35.3 Tinea pedis (principal); L30.9 Dermatitis, unspecified | CPT/HCPCS: 88305; 88312 ==

== ENCOUNTER 2025-04-06 12:58 | Emergency (ER) | payer OTHER ==
[~2025-04-06] VITALS: Ht 195.6 cm; Wt 142.9 kg
[2025-04-06] MEDS ORDERED: Ondansetron HCl 2 MG / ML 2ML Vial IV PRN (13:30)
[2025-04-06 14:23] LABS: Alanine Aminotransfer (ALT/SGP 26.0 U/L (12-78); Albumin, Blood 4.3 g/dL (3.4-5.0); Albumin/Globulin Ratio 1.0 (0.8-1.8); Anion Gap 10.0 mmol/L (3-11); Aspartate Aminotrans (AST/SGOT 37.0 U/L (12-37); Bilirubin, Total 1.7 mg/dL (0.1-1.0); Blood Urea Nitrogen 15.0 mg/dL (8-24); CO2, Blood 27.0 mmol/L (21-32); Calcium, Blood 9.3 mg/dL (8.5-10.1); Chloride, Blood 101.0 mmol/L (98-108); Creatinine, Blood 0.75 mg/dL (0.60-1.20); Globulin, Blood 4.2 g/dL (2.2-4.0); Glucose, Blood 227.0 mg/dL (70-99); Potassium, Blood 4.7 mmol/L (3.5-5.5); Sodium, Blood 133.0 mmol/L (136-145); Total Protein, Blood 8.5 g/dL (6.4-8.2)
[2025-04-06 16:23] LABS: BASOPHILS ABSOLUTE AUTO 0.06 K/mm3 (0.00-0.23); BASOPHILS PERCENT AUTO 0 % (0-2); EOSINOPHILS ABSOLUTE AUTO 0.13 K/mm3 (0.00-0.68); EOSINOPHILS PERCENT AUTO 1 % (0-6); Hematocrit 49.8 % (37.0-53.0); Hemoglobin 17.5 g/dL (13.5-17.5); IMMATURE GRAN ABSOLUTE AUTO 0.09 K/mm3 (0.00-0.10); IMMATURE GRAN PERCENT AUTO 1 % (0-1); LYMPHOCYTES ABSOLUTE AUTO 3.05 K/mm3 (0.84-5.20); LYMPHOCYTES PERCENT AUTO 19 % (21-46); MONOCYTES ABSOLUTE AUTO 0.82 K/mm3 (0.16-1.47); MONOCYTES PERCENT AUTO 5 % (4-13); Mean Corpuscular HGB Conc 35.1 g/dL (31.5-36.5); Mean Corpuscular Volume 91 fL (80-100); NEUTROPHILS ABSOLUTE AUTO 11.64 K/mm3 (1.96-9.15); NEUTROPHILS PERCENT AUTO 74 % (41-73); NRBC ABSOLUTE 0.00 K/mm3 (0.00-0.02); NRBC Auto 0.0 /100 WBC (0.0-0.2); Platelet Count 306 K/mm3 (150-400); RDW Coefficient Variation 13.2 % (11.7-14.2); RDW Standard Deviation 44.4 fL (35.1-46.3)
[2025-04-06] MEDS ORDERED: Trimethoprim/Sulfamethoxazole DS Tab PO ONE (17:15)
[2025-04-06] MEDS ORDERED: Bacitracin Zinc Oint 1GRAM UD Packet TOP ONE (17:15)
[2025-04-06] MEDS ORDERED: ONDA4ODT MM (17:20)
[2025-04-06] MEDS ORDERED: SULTRIDS PO (17:20)
[2025-04-06 18:15] VITALS: BP 128/83
== END 2025-04-06 18:47 | disposition home or self-care (01) ==
LOC: ER 12:58
PROVIDERS: Emergency Medicine
DX: L03.311 Cellulitis of abdominal wall (principal); Z59.00 Homelessness unspecified; I10 Essential (primary) hypertension; J45.909 Unspecified asthma, uncomplicated; E87.1 Hypo-osmolality and hyponatremia; E66.01 Morbid (severe) obesity due to excess calories
CPT/HCPCS: 74177; 80053; 83605; 85025; 96374; 99284-25; A9270; J2405; Q9967

== ENCOUNTER 2025-04-08 13:18 | Inpatient (IN) | payer OTHER ==
[~2025-04-08] VITALS: Ht 195.6 cm; Wt 148.1 kg
[~2025-04-08 13:18] MED LIST changes: +SULTRIDS PO
[2025-04-08 14:38] LABS: BASOPHILS ABSOLUTE AUTO 0.04 K/mm3 (0.00-0.23); BASOPHILS PERCENT AUTO 0 % (0-2); EOSINOPHILS ABSOLUTE AUTO 0.20 K/mm3 (0.00-0.68); EOSINOPHILS PERCENT AUTO 2 % (0-6); Hematocrit 41.9 % (37.0-53.0); Hemoglobin 15.0 g/dL (13.5-17.5); IMMATURE GRAN ABSOLUTE AUTO 0.04 K/mm3 (0.00-0.10); IMMATURE GRAN PERCENT AUTO 0 % (0-1); LYMPHOCYTES ABSOLUTE AUTO 2.13 K/mm3 (0.84-5.20); LYMPHOCYTES PERCENT AUTO 20 % (21-46); MONOCYTES ABSOLUTE AUTO 0.70 K/mm3 (0.16-1.47); MONOCYTES PERCENT AUTO 7 % (4-13); Mean Corpuscular HGB Conc 35.8 g/dL (31.5-36.5); Mean Corpuscular Volume 90 fL (80-100); NEUTROPHILS ABSOLUTE AUTO 7.31 K/mm3 (1.96-9.15); NEUTROPHILS PERCENT AUTO 70 % (41-73); NRBC ABSOLUTE 0.00 K/mm3 (0.00-0.02); NRBC Auto 0.0 /100 WBC (0.0-0.2); Platelet Count 288 K/mm3 (150-400); RDW Coefficient Variation 13.2 % (11.7-14.2); RDW Standard Deviation 43.1 fL (35.1-46.3)
[2025-04-08 15:14] LABS: Alanine Aminotransfer (ALT/SGP 20.0 U/L (12-78); Albumin, Blood 3.7 g/dL (3.4-5.0); Albumin/Globulin Ratio 0.9 (0.8-1.8); Anion Gap 10.0 mmol/L (3-11); Aspartate Aminotrans (AST/SGOT 11.0 U/L (12-37); Bilirubin, Total 0.8 mg/dL (0.1-1.0); Blood Urea Nitrogen 14.0 mg/dL (8-24); CO2, Blood 27.0 mmol/L (21-32); Calcium, Blood 8.9 mg/dL (8.5-10.1); Chloride, Blood 99.0 mmol/L (98-108); Creatinine, Blood 0.78 mg/dL (0.60-1.20); Globulin, Blood 4.1 g/dL (2.2-4.0); Glucose, Blood 347.0 mg/dL (70-99); Potassium, Blood 3.8 mmol/L (3.5-5.5); Sodium, Blood 132.0 mmol/L (136-145); Total Protein, Blood 7.8 g/dL (6.4-8.2)
[2025-04-08] MEDS ORDERED: Trimethoprim/Sulfamethoxazole DS Tab PO ONE (18:25)
[2025-04-08] MEDS ORDERED: Bacitracin Zinc Oint 1GRAM UD Packet TOP ONE (18:25)
[2025-04-08] MEDS ORDERED: Vancomycin (Pharmacy Consult) IV SCH (19:15)
[2025-04-08] MEDS ORDERED: NS 1,000 ML IV SCH (19:15)
[2025-04-08] MEDS ORDERED: FentaNYL Citrate 50 MCG/ML 2 ML Injection IV PRN (19:20)
[2025-04-08] MEDS ORDERED: Ondansetron HCl 2 MG / ML 2ML Vial IV PRN (19:20)
[2025-04-08] MEDS ORDERED: FLU VACC TS2025-26(6MOS UP)/PF 45 MCG/0.5 ML SYRINGE IM SCH (19:20)
[2025-04-08] MEDS ORDERED: Piperacillin/Tazobactam Sod 4.5 GM in NS 100 ML IV ONE (19:25)
[2025-04-08] MEDS ORDERED: Vancomycin HCL 2,500 MG in NS 500 ML IV ONE (19:30)
[2025-04-08] MEDS ORDERED: METFORMIN HCL1000 M6 PO (19:45)
[2025-04-08] MEDS ORDERED: ATOR10 PO (19:46)
[2025-04-08] MEDS ORDERED: HYDROmorphone HCl/Pf 1MG SYR IV ONE (22:25)
[2025-04-08] MEDS ORDERED: NS 500 ML IV ONE (22:25)
[2025-04-08 23:56] VITALS: BP 111/62
[2025-04-09] MEDS ORDERED: Insulin Glargine-Yfgn 100 Unit/mL 3 ML SYR SC SCH
[2025-04-09] MEDS ORDERED: Insulin Glargine 100 Unit/ML 3 ML SYR SC SCH (00:33)
--- NOTE | 2025-04-09 02:45 | NUR ---
WOUND CARE COMPLETE PT IS NEW ADMIT WITH ABD CELLULITIS. PT CONSENTED TO PHOTOGRAPHS OF WOUNDS. PT HAS WOUND TO RIGHT MID/LOWER ABDOMINAL AREA. WOUND CLEANSED WITH CLEANSER AND STERILE GAUZE. 2 ABD PADS PLACED OVER THE WOUND AND SECURED WITH MEDIPORT TAPE. PT TOLERATED WELL.
[2025-04-09] MEDS ORDERED: ALBU90OI INH (03:03)
[2025-04-09] MEDS ORDERED: OMEGA 3 PO (03:05)
[2025-04-09] MEDS ORDERED: B COMPLEX FORM0.4 MG PO (03:06)
[2025-04-09] MEDS ORDERED: POTA10T PO (03:09)
[2025-04-09] MEDS ORDERED: STEGLATRO15 MG PO (03:09)
[2025-04-09] MEDS ORDERED: Piperacillin/Tazobactam Sod 4.5 GM in NS 100 ML IV SCH (04:00)
--- NOTE | 2025-04-09 04:28 | NUR ---
SHIFT SUMMARY ADMIT 04.08.25 FOR ABDOMINAL WALL CELLULITIS. PHOTOS IN CHART. WOUND DRESSED, 1 MAGGOT REMOVED. A&OX4. CONTINENT. BEDBOUND D/T CHRONIC LLE WEAKNESS/NEUROPATHY RELATED TO BACK INJURY. DOES STAND/PIVOT TO BSC ON RLE WITH MINIMAL 1 PERSON ASSIST. TOLERATING PO WELL. INITIALLY WAS NPO, THOUGH DUE TO NO SURGICAL CONSULT VISUALIZED, AGREED WITH MD [employer] SERVICES MANAGER TO D/C NPO ORDER FOR NOW. DID REQUIRE ADDITIONAL PRN MEDICATION PER MAR TO CONTROL ABDOMINAL + R HIP/LEG PAIN THIS EVENING. PT REQUIRES HOUSING AND FOOD RESOURCES. ON WAITLIST FOR [employer], BUT CURRENTLY UNHOUSED AND WAS DISCHARGED FROM THE [facility]. FRIEND IS WATCHING HIS WHEELCHAIR FOR HIM IN [facility] CURRENTLY. PT HAS A GLUCOMETER, BUT NO SUPPLIES TO CHECK HIS SUGARS FOR HIS DM2.
[2025-04-09 04:46] VITALS: BP 134/65
[2025-04-09 05:08] LABS: BASOPHILS ABSOLUTE AUTO 0.04 K/mm3 (0.00-0.23); BASOPHILS PERCENT AUTO 0 % (0-2); EOSINOPHILS ABSOLUTE AUTO 0.19 K/mm3 (0.00-0.68); EOSINOPHILS PERCENT AUTO 2 % (0-6); Hematocrit 34.3 % (37.0-53.0); Hemoglobin 12.2 g/dL (13.5-17.5); IMMATURE GRAN ABSOLUTE AUTO 0.05 K/mm3 (0.00-0.10); IMMATURE GRAN PERCENT AUTO 1 % (0-1); LYMPHOCYTES ABSOLUTE AUTO 1.61 K/mm3 (0.84-5.20); LYMPHOCYTES PERCENT AUTO 15 % (21-46); MONOCYTES ABSOLUTE AUTO 0.66 K/mm3 (0.16-1.47); MONOCYTES PERCENT AUTO 6 % (4-13); Mean Corpuscular HGB Conc 35.6 g/dL (31.5-36.5); Mean Corpuscular Volume 91 fL (80-100); NEUTROPHILS ABSOLUTE AUTO 8.20 K/mm3 (1.96-9.15); NEUTROPHILS PERCENT AUTO 76 % (41-73); NRBC ABSOLUTE 0.00 K/mm3 (0.00-0.02); NRBC Auto 0.0 /100 WBC (0.0-0.2); Platelet Count 255 K/mm3 (150-400); RDW Coefficient Variation 13.0 % (11.7-14.2); RDW Standard Deviation 42.9 fL (35.1-46.3)
[2025-04-09 05:51] LABS: Alanine Aminotransfer (ALT/SGP 16.0 U/L (12-78); Albumin, Blood 2.7 g/dL (3.4-5.0); Albumin/Globulin Ratio 0.9 (0.8-1.8); Anion Gap 9.0 mmol/L (3-11); Aspartate Aminotrans (AST/SGOT 11.0 U/L (12-37); Bilirubin, Total 0.9 mg/dL (0.1-1.0); Blood Urea Nitrogen 12.0 mg/dL (8-24); CO2, Blood 24.0 mmol/L (21-32); Calcium, Blood 8.1 mg/dL (8.5-10.1); Chloride, Blood 104.0 mmol/L (98-108); Creatinine, Blood 0.69 mg/dL (0.60-1.20); Globulin, Blood 3.1 g/dL (2.2-4.0); Glucose, Blood 285.0 mg/dL (70-99); Potassium, Blood 3.2 mmol/L (3.5-5.5); Sodium, Blood 134.0 mmol/L (136-145)
[2025-04-09 05:53] LABS: Total Protein, Blood 5.8 g/dL (6.4-8.2)
[2025-04-09] MEDS ORDERED: Insulin Human Lispro 100 Units/ML 3ML Syringe SC SCH (07:30)
[2025-04-09 07:31] VITALS: BP 126/64
[2025-04-09] MEDS ORDERED: Albuterol HFA200 ACT/6.7 GM INH INH PRN (10:45)
[2025-04-09] MEDS ORDERED: DULO60 PO (10:51)
[2025-04-09] MEDS ORDERED: MELO7.5 PO (10:53)
[2025-04-09] MEDS ORDERED: Potassium Chloride 10 Meq Tablet SA PO SCH (11:00)
[2025-04-09] MEDS ORDERED: Enoxaparin 40 MG/0.4 ML SYR SC SCH (11:00)
[2025-04-09 11:49] VITALS: BP 147/73
[2025-04-09 15:30] VITALS: BP 143/78
--- NOTE | 2025-04-09 16:04 | NUR ---
SHIFT SUMMARY PT AOX4, COOPERATIVE, ABLE TO MAKE NEEDS KNOWN. PT ON ISO FOR HX OF MRSA IN 2023. PT IS STAND AND PIVOT TO COMMODE FOR BM'S WHICH DID HAPPEN TODAY. USES URINAL CORRECTLY. TOLERATING MEDICATIONS. WOUND CARE PERFORMED THIS SHIFT PER ORDERS. PT DOES EXPRESS NERVE PAIN RLE, MEDICATING PER EMAR. ON ROOM AIR, BED IN LOWEST POSITION, CALL LIGHT WITHIN REACH.
[2025-04-09] MEDS ORDERED: NS 250 ML IV PRN (16:45)
[2025-04-09 19:50] VITALS: BP 137/68
[2025-04-09 23:39] VITALS: BP 160/72
[2025-04-10 04:53] VITALS: BP 143/61
--- NOTE | 2025-04-10 05:16 | NUR ---
ACUPRESSURIST SUMMARY W/HOSPITALIST CONTACT PT A/OX4. NO ACUTE CHANGED. PT DID REPORT HIGH PAIN OF 8-9/10. PT REPORTING RELIEF WITH THE FENTANYL BUT FOR JUST A SHORT PERIOD OF TIME. CALLED HOSPITALIST. DR MÉNDEZ ORDERED OXYCODONE 5-10MG Q6 PRN. MEDS GIVEN PER JUL. PT REPORTED MORE CONTROLLED PAIN. WOUND DRESSING CHANGED TO ABD CELLULITIS WOUND PER WOUND ORDER. PT TOLERATED WELL. WOUND INSIDE AREA OF INK PATY. SOME YELLOWISH AND BLOODY DISCHARGE TO THE ABD PAD OBSERVED. PT CALL LIGHT IS ACCESSIBLE. ABLE TO MAKE NEEDS KNOWN. REGULAR INTERVAL ROUNDING COMPLETE. CARE WILL CONTINUE UNTIL REPORT GIVEN TO ONCOMING NURSE.
[2025-04-10 07:29] LABS: Hematocrit 34.4 % (37.0-53.0); Hemoglobin 12.1 g/dL (13.5-17.5); Mean Corpuscular HGB Conc 35.2 g/dL (31.5-36.5); Mean Corpuscular Volume 91 fL (80-100); NRBC ABSOLUTE 0.00 K/mm3 (0.00-0.02); NRBC Auto 0.0 /100 WBC (0.0-0.2); Platelet Count 214 K/mm3 (150-400); RDW Coefficient Variation 12.8 % (11.7-14.2); RDW Standard Deviation 42.2 fL (35.1-46.3)
[2025-04-10 07:46] VITALS: BP 158/71
[2025-04-10 07:46] LABS: Anion Gap 9.0 mmol/L (3-11); Blood Urea Nitrogen 7.0 mg/dL (8-24); CO2, Blood 25.0 mmol/L (21-32); Calcium, Blood 8.3 mg/dL (8.5-10.1); Chloride, Blood 108.0 mmol/L (98-108); Creatinine, Blood 0.72 mg/dL (0.60-1.20); Glucose, Blood 197.0 mg/dL (70-99); Magnesium, Blood 2.1 mg/dL (1.6-2.4); Potassium, Blood 3.3 mmol/L (3.5-5.5); Sodium, Blood 139.0 mmol/L (136-145)
[2025-04-10] MEDS ORDERED: Vitamin B Complex 1 EA Softgel PO SCH (09:00)
[2025-04-10 09:56] LABS: Vancomycin, Trough 17.1 ug/mL (5.0-10.0)
[2025-04-10] MEDS ORDERED: OxyCODONE 5 mg/Acetamin 325 mg TABLET PO PRN (10:25)
[2025-04-10 11:29] VITALS: BP 158/85
[2025-04-10 16:11] VITALS: BP 143/68
--- NOTE | 2025-04-10 17:56 | NUR ---
SHIFT SUMMARY PT AOX4, COOPERATIVE, ABLE TO MAKE NEEDS KNOWN. PT HAS REMAINED IN BED DURING DURATION OF SHIFT. TOLERATING MEDICAITONS, ON ROOM AIR, ON TELE. WOUND CARE ORDERS CHANGED FROM PREVIOUS, REFLECTED IN ORDERS. WOUND CARE PERFORMED THIS SHIFT. PT USD BEDPAN FOR BM TODAY. MAIN COMPLAINT OF SPASM IN RLE, MEDICATING PER EMAR. BED IN LOWEST POSITION, CALL LIGHT WITHIN REACH.
[2025-04-10 19:41] VITALS: BP 131/73
[2025-04-11 00:07] VITALS: BP 119/62
--- NOTE | 2025-04-11 04:31 | NUR ---
SHIFT SUMMARY; PATIENT SLEPT IN LONG INTERVALS. MEDICATED FOR PAIN. ABD DRESSING DID NOT NEED CHANGED, DRESSING UNCHANGED. TELE SR 84. REMAINS IN CONTACT PRECAUTIONS FOR HX OF MRSA. IV ABX ADMINSTERED ORDERED.
[2025-04-11 04:47] VITALS: BP 127/59
[2025-04-11 06:09] LABS: Anion Gap 9.0 mmol/L (3-11); Blood Urea Nitrogen 8.0 mg/dL (8-24); CO2, Blood 25.0 mmol/L (21-32); Calcium, Blood 8.7 mg/dL (8.5-10.1); Chloride, Blood 106.0 mmol/L (98-108); Creatinine, Blood 0.75 mg/dL (0.60-1.20); Glucose, Blood 211.0 mg/dL (70-99); Potassium, Blood 3.4 mmol/L (3.5-5.5); Sodium, Blood 137.0 mmol/L (136-145)
[2025-04-11 08:28] VITALS: BP 139/67
[2025-04-11] MEDS ORDERED: Potassium Chloride 10 Meq Tablet SA PO ONE ×2 (08:40→11:05)
[2025-04-11 11:46] VITALS: BP 125/60
[2025-04-11] MEDS ORDERED: FISH OIL 1,0001 EA10 PO (11:50)
[2025-04-11] MEDS ORDERED: TERB250 PO (11:51)
[2025-04-11] MEDS ORDERED: Insulin Human Lispro 100 Units/ML 3ML Syringe SC SCH (12:30)
[2025-04-11 15:26] VITALS: BP 139/75
--- NOTE | 2025-04-11 18:48 | NUR ---
END OF SHIFT PATIENT RESTING IN BED. IV INFUSING TO ORDER. PATIENT A&OX4, ABLE TO MAKE NEEDS KNOWN. IND ADJUSTMENTS IN BED, NO BM TODAY, USING URINAL IN BED IND. WOUND CLEANED AND REDRESSED. C/D/I AT THIS TIME. NO OTHER CONCERNS FOR THIS SHIFT.
[2025-04-11 20:32] VITALS: BP 113/63
[2025-04-12 00:15] VITALS: BP 130/64
--- NOTE | 2025-04-12 00:40 | NUR ---
ASSUMED PT CARE AND RECEIVED REPORT FROM RN. PT CURRENTLY RESTING IN HIS BED AT LOWEST POSITION WITH CALL LIGHT WITHIN REACH.
[2025-04-12 04:27] VITALS: BP 141/73
[2025-04-12 05:31] LABS: Anion Gap 8.0 mmol/L (3-11); Blood Urea Nitrogen 10.0 mg/dL (8-24); CO2, Blood 25.0 mmol/L (21-32); Calcium, Blood 8.3 mg/dL (8.5-10.1); Chloride, Blood 108.0 mmol/L (98-108); Creatinine, Blood 0.71 mg/dL (0.60-1.20); Glucose, Blood 198.0 mg/dL (70-99); Potassium, Blood 3.7 mmol/L (3.5-5.5); Sodium, Blood 137.0 mmol/L (136-145)
--- NOTE | 2025-04-12 07:19 | NUR ---
SHIFT SUMMARY THIS RN ASSUMED PT CARE THROUGHOUT SHIFT. PT IS A&OX4 AND ABLE TO MAKE ALL NEEDS KNOWN. TOLERATING ABX INFUSIONS WELL W/O COMPLAINT. PAIN MEDS GIVEN PER EMAR ORDERS PT DOES CONTINUE TO HAVE PAIN. PAIN DOES APPEAR TO BE MANAGED WITH CURRENT REGIMEN AT PT WAS ABLE TO REST COMFORTABLY FOR A GOOD PORTION OF THE NIGHT. PT CURRENTLY RESTING IN BED AT LOWEST POSITION WITH CALL LIGHT WITHIN REACH.
[2025-04-12 07:28] VITALS: BP 127/62
[2025-04-12] MEDS ORDERED: DULoxetine HCL 60 MG Capsule DR PO SCH (09:00)
[2025-04-12] MEDS ORDERED: Lactobacil 2-S.Thermo-Bifido 1 1 Cap PO SCH (09:00)
[2025-04-12 10:19] LABS: Vancomycin, Trough 20.6 ug/mL (5.0-10.0)
[2025-04-12 11:25] VITALS: BP 149/82
[2025-04-12 15:14] VITALS: BP 144/72
--- NOTE | 2025-04-12 18:40 | NUR ---
END OF SHIFT NOTE PATIENT RESTING IN BED. A&O4, IND IN BED, IND WITH URINAL, ABLE TO MAKE NEEDS KNOWN. PATIENT SAT IN CHAIR FOR A COUPLE HOURS TODAY WITH LEGS ELEVATED. A LOT OF DISCUSSION ABOUT D/C PLAN TODAY AND FINDING A SAFE PLACE TO GO. POWERGLIDE INFUSING TO ORDER, NO OTHER CONERNS FOR THIS SHIFT.
[2025-04-12 20:33] VITALS: BP 155/79
[2025-04-13] VITALS (7 sets, daily range): BP systolic 141–166; BP diastolic 70–99
--- NOTE | 2025-04-13 04:28 | NUR ---
SHIFT SUMMARY PATIENT IS ALERT AND ORIENTED. PATIENT HAS HAD NO ACUTE EVENTS THIS SHIFT. VITAL SIGNS REVIEWED. PATIENT HAS BEEN MEDICATED FOR PAIN THIS SHIFT. PATIENT HAS NO COMPLAINTS OF SOB, NAUSEA, OR VOMITTING THIS SHIFT. IV FLUIDS INFUSED ORDERED. BED IN LOCKED AND LOWEST POSITION. CALL LIGHT IN PLACE.
[2025-04-14 04:05] VITALS: BP 165/78
--- NOTE | 2025-04-14 05:44 | NUR ---
END OF SHIFT SUMMARY: A&Ox4. PLEASANT AND COOPERATIVE WITH CARE. CALLS APPROPRIATELY AND IS ABLE TO ADVOCATE NEEDS EFFECTIVELY. VSS. TELE STRIP IN CHART REVIEWED AND INTERPRETED SINUS @ 81bpm. BREATHING EVEN AND UNLABORED c RA. CONTINENT OF BOWEL AND BLADDER. TOLERATING DIET. 1PA STAND/PIVOT TO BSC OR CHAIR; W/C @ BASELINE. MEDS WHOLE c FLUIDS. AWAKE MAJORITY OF THE NIGHT; PAIN MEDS ROUTINELY PER PT REQUEST. ABD DRESSING CHANGED AND SECURED. ORDER PLACED FOR MICONAZOLE POWDER BENEATH PANUS PER PROTOCOL. BED IN LOWEST POSITION, CALL LIGHT WITHIN REACH, ALL NEEDS MET. REPORT TO ONCOMING NURSE.
[2025-04-14 07:26] VITALS: BP 142/76
[2025-04-14] MEDS ORDERED: Miconazole Nitrate 2% 85 GM PWD TOP SCH (09:00)
[2025-04-14] MEDS ORDERED: SEMGLEE (Y100 UNIT/2 SC (13:12)
[2025-04-14] MEDS ORDERED: LOSA25 PO (13:13)
[2025-04-14] MEDS ORDERED: VISBIOME 112.51 EACH PO (13:13)
[2025-04-14] MEDS ORDERED: Percocet 10-321 EACH PO (13:17)
[2025-04-14] MEDS ORDERED: PIPERACIL-TAZO4.5 G1 IV (13:18)
[2025-04-14] MEDS ORDERED: SPIR25 PO (13:18)
[2025-04-14] MEDS ORDERED: TIZA4 PO (13:21)
--- NOTE | 2025-04-14 14:44 | NUR ---
CALLED TO GIVE REPORT TO [facility]. WAS TRANSFERRED, BUT THEN SENT TO [facility]. MESSAGE LEFT TO RETURN CALL TO RECEIVE REPORT.
[2025-04-14 15:25] VITALS: BP 157/82
--- NOTE | 2025-04-14 16:10 | NUR ---
DISCHARGE NOTE: COLLECTED PAITENT'S BELONGINGS. PATIENT TELE REMOVED. POWERGLIDE LEFT IN FOR IV ANTIBIOTIC ADMINISTRATION OVER AT RN. MEDICAL TRANSPORT ARRIVED AND PATIENT STAND PIVOT TRANSFERRED INTO THE WHEELCHAIR. PACKET PROVIDED TO MEDICAL TRANSPORTER. CALL MADE PREVIOUSLY TO GIVE REPORT NO ANSWER LMOM; OUR HOSPITAL PHONE SYSTEM IS CURRENTLY DOWN. NO SIGNS OR SYMPTOMS OF DISTRESS DURING DISCHARGE.
== END 2025-04-14 16:10 | DRG 638 ==
LOC: ER 13:18 → ERHOLD 18:54 → MEDS 18:54 → ENPENDDIS 04-14 12:53 → MEDS 04-14 16:10
PROVIDERS: Internal Medicine; Student in an Organized Health Care Education/Training Program; ADMIT Internal Medicine
DX: E11.628 Type 2 diabetes mellitus with other skin complications (principal); E87.1 Hypo-osmolality and hyponatremia; L03.311 Cellulitis of abdominal wall; Z59.00 Homelessness unspecified; E87.20 Acidosis, unspecified; J45.20 Mild intermittent asthma, uncomplicated; E11.65 Type 2 diabetes mellitus with hyperglycemia; F32.A Depression, unspecified; E66.01 Morbid (severe) obesity due to excess calories; E87.6 Hypokalemia; R60.0 Localized edema; E11.42 Type 2 diabetes mellitus with diabetic polyneuropathy; E78.5 Hyperlipidemia, unspecified; Z68.36 Body mass index [BMI] 36.0-36.9, adult; E66.813 Obesity, class 3; Z99.3 Dependence on wheelchair; I10 Essential (primary) hypertension; Z79.899 Other long term (current) drug therapy; Z79.84 Long term (current) use of oral hypoglycemic drugs; Z98.890 Other specified postprocedural states
CPT/HCPCS: 36415; 80048; 80053; 80202; 82947; 83036; 83605; 83735; 83880; 84132; 85025; 85027; 87040; 87077; 94760; 99285; A9270; J1171; J1650; J1815; J2405; J2543; J3010; J3373; J7030; J7040; J7050

== ENCOUNTER 2025-05-10 20:32 | Emergency (ER) | payer OTHER ==
[~2025-05-10] VITALS: Ht 177.8 cm; Wt 120.2 kg
[~2025-05-10 20:32] MED LIST changes: +ATOR10 PO; +B COMPLEX FORM0.4 MG PO; +DULO60 PO; +FISH OIL 1,0001 EA10 PO; +LOSA25 PO; +MELO7.5 PO; +METFORMIN HCL1000 M6 PO; +OMEGA 3 PO; +PIPERACIL-TAZO4.5 G1 IV; +POTA10T PO; +Percocet 10-321 EACH PO; +SEMGLEE (Y100 UNIT/2 SC; +SPIR25 PO; +STEGLATRO15 MG PO; +TERB250 PO; +TIZA4 PO; +VISBIOME 112.51 EACH PO
[2025-05-10 21:04] VITALS: BP 172/87
[2025-05-10] MEDS ORDERED: Ondansetron HCl 2 MG / ML 2ML Vial IV ONE (21:25)
[2025-05-10] MEDS ORDERED: NS 1,000 ML IV SCH (21:25)
[2025-05-10 22:46] LABS: BASOPHILS ABSOLUTE AUTO 0.02 K/mm3 (0.00-0.23); BASOPHILS PERCENT AUTO 0 % (0-2); EOSINOPHILS ABSOLUTE AUTO 0.07 K/mm3 (0.00-0.68); EOSINOPHILS PERCENT AUTO 1 % (0-6); Hematocrit 39.4 % (37.0-53.0); Hemoglobin 14.0 g/dL (13.5-17.5); IMMATURE GRAN ABSOLUTE AUTO 0.05 K/mm3 (0.00-0.10); IMMATURE GRAN PERCENT AUTO 0 % (0-1); LYMPHOCYTES ABSOLUTE AUTO 2.49 K/mm3 (0.84-5.20); LYMPHOCYTES PERCENT AUTO 18 % (21-46); MONOCYTES ABSOLUTE AUTO 0.67 K/mm3 (0.16-1.47); MONOCYTES PERCENT AUTO 5 % (4-13); Mean Corpuscular HGB Conc 35.5 g/dL (31.5-36.5); Mean Corpuscular Volume 91 fL (80-100); NEUTROPHILS ABSOLUTE AUTO 10.28 K/mm3 (1.96-9.15); NEUTROPHILS PERCENT AUTO 76 % (41-73); NRBC ABSOLUTE 0.00 K/mm3 (0.00-0.02); NRBC Auto 0.0 /100 WBC (0.0-0.2); Platelet Count 279 K/mm3 (150-400); RDW Coefficient Variation 12.6 % (11.7-14.2); RDW Standard Deviation 41.6 fL (35.1-46.3)
[2025-05-10 23:07] LABS: Alanine Aminotransfer (ALT/SGP 22.0 U/L (12-78); Albumin, Blood 3.2 g/dL (3.4-5.0); Albumin/Globulin Ratio 0.8 (0.8-1.8); Anion Gap 9.0 mmol/L (3-11); Aspartate Aminotrans (AST/SGOT 11.0 U/L (12-37); Bilirubin, Total 0.9 mg/dL (0.1-1.0); Blood Urea Nitrogen 10.0 mg/dL (8-24); CO2, Blood 28.0 mmol/L (21-32); Calcium, Blood 8.9 mg/dL (8.5-10.1); Chloride, Blood 102.0 mmol/L (98-108); Creatinine, Blood 0.66 mg/dL (0.60-1.20); Globulin, Blood 4.0 g/dL (2.2-4.0); Glucose, Blood 226.0 mg/dL (70-99); Potassium, Blood 3.9 mmol/L (3.5-5.5); Sodium, Blood 135.0 mmol/L (136-145); Total Protein, Blood 7.2 g/dL (6.4-8.2)
[2025-05-11] MEDS ORDERED: Loperamide2 MG PO (00:24)
[2025-05-11] MEDS ORDERED: ONDA4ODT MM (00:24)
[2025-05-11] MEDS ORDERED: RX Prepack 2 Tabs Ondansetron ODT 4MG UD ONE (00:25)
== END 2025-05-11 00:55 | disposition home or self-care (01) ==
LOC: ER 20:32
PROVIDERS: Emergency Medicine
DX: K52.9 Noninfective gastroenteritis and colitis, unspecified (principal); E86.0 Dehydration; J45.20 Mild intermittent asthma, uncomplicated; E11.42 Type 2 diabetes mellitus with diabetic polyneuropathy; I10 Essential (primary) hypertension; Z88.8 Allergy status to other drugs, medicaments and biological substances
CPT/HCPCS: 36415; 74177; 80053; 83690; 85025; 96361; 96374-59; 99284-25; A9270; J2405; J7030; Q9967